=== PATIENT | female | born 1980 | race American Indian/Alaskan Native ===

== ENCOUNTER 2020-07-24 12:22 | Emergency (ER) | payer MEDICAID ==
--- NOTE | 2020-07-27 07:56 | XRay Report ---
CHEST 1 VIEW 07/24/2020 3:51 PM INDICATION / CLINICAL INFORMATION: Shortness of breath. COMPARISON: None available. FINDINGS: SUPPORT DEVICES: None. HEART / MEDIASTINUM: No significant abnormality. LUNGS / PLEURA: No significant pulmonary or pleural abnormality. No pneumothorax. ADDITIONAL FINDINGS: No significant additional findings. IMPRESSION: 1. No acute findings. Signer Name: Manjinder Lucas MD Signed: 07/24/2020 4:54 PM Workstation Name: [id number]
== END 2020-07-24 17:39 | disposition home or self-care (01) ==
LOC: ED 12:22
DX: R30.0 Dysuria (principal)
CPT/HCPCS: 71045; 87591; 93005